=== PATIENT | female | born 1990 ===

== ENCOUNTER 2017-11-28 18:01 | Emergency (ER) | payer BC ==
[2017-11-28 18:13] VITALS: BMI 22.1
[2017-11-28 21:16] LABS: BASO # 0.04 K/mm3 (0.0-2.0); BASO % 0.3 % (0.0-3.0); EOS # 0.4 (0.0-0.7); EOS % 3.7 % (1.5-5.0); GRAN # 6.9 (1.4-6.5); GRAN % 58.2 % (50.0-68.0); HEMOGLOBIN 12.7 g/dL (12.0-16.0); LYMPH # 3.7 (1.2-3.4); LYMPH % 31.4 % (22.0-35.0); MEAN CELL VOLUME 95.1 fl (80.0-105.0); MEAN CORPUSCULAR HEMOGLOBIN 30.9 pg (25.0-35.0); MEAN CORPUSCULAR HGB CONC 32.5 g/dl (31.0-37.0); MEAN PLATELET VOLUME 9.3 fl (7.0-11.0); MONO # 0.8 (0.1-0.6); MONO % 6.4 % (1.0-6.0); RBC 4.11 10^6/uL (3.5-6.1); RED CELL DISTRIBUTION WIDTH 13.2 % (11.5-14.5); WHITE BLOOD COUNT 11.9 10^3/ul (4.5-11.0)
--- NOTE | 2017-11-28 21:30 | ED PDOC ---
Arrival/HPI - General Chief Complaint: Psychiatric Evaluation Time Seen by Provider: 11/28/17 21:06 Historian: Patient - History of Present Illness Narrative History of Present Illness (Text): 11/28/17 21:10 27 year old female, whose past medical history includes bipolar disorder, presents to the emergency department requesting psych admission. Patient reports manic episode 5 days ands wants evaluated. Patient states wants to be admitted to [facility], but needs to be cleared by mobile crisis in order to be admitted. Patient denies suicidal Ideation, homicidal Ideation, visual hallucinations, auditory hallucination, or any other complaints. Time/Duration: Other (5 days ) Symptom Onset: Gradual Symptom Course: Unchanged Activities at Onset: Light Context: Home Past Medical History - Provider Review Nursing Documentation Reviewed: Yes - Infectious Disease Hx of Infectious Diseases: None - Psychiatric Hx Bipolar Disorder: Yes Hx Substance Use: Yes Family/Social History - Physician Review Nursing Documentation Reviewed: Yes Family/Social History: No Known Family HX Smoking Status: Smoker Currrent Status Unknown Hx Alcohol Use: No Hx Substance Use: Yes Substance used: weeds Allergies/Home Meds Allergies/Adverse Reactions: Allergies No Known Allergies Allergy (Verified 11/28/17 21:03) Home Medications: Home Meds Medication Instructions Recorded Confirmed [place] Carbonate ER Tab [[place] 450 mg PO BID 11/28/17 11/28/17 Carbonate] Ziprasidone HCl [Geodon] 20 mg PO BID 11/28/17 11/28/17 Review of Systems - Physician Review All systems were reviewed & negative as marked: Yes - Review of Systems Neurological: absent: Headache, Dizziness Psychiatric: absent: Suicidal Ideation (homicidal ideation ), Other (visual hallucinations/auditory hallucination,) Physical Exam Vital Signs Reviewed: Yes Temperature: Afebrile Blood Pressure: Normal Pulse: Regular Respiratory Rate: Normal Appearance: Positive for: Well-Appearing, Non-Toxic, Comfortable Pain Distress: None Mental Status: Positive for: Alert and Oriented X 3 - Systems Exam Head: Present: Atraumatic, Normocephalic Pupils: Present: PERRL Extroacular Muscles: Present: EOMI Conjunctiva: Present: Normal Mouth: Present: Moist Mucous Membranes Neck: Present: Normal Range of Motion Respiratory/Chest: Present: Clear to Auscultation, Good Air Exchange. No: Respiratory Distress, Accessory Muscle Use Cardiovascular: Present: Regular Rate and Rhythm, Normal S1, S2. No: Murmurs Abdomen: Present: Normal Bowel Sounds. No: Tenderness, Distention, Peritoneal Signs Back: Present: Normal Inspection Upper Extremity: Present: Normal Inspection. No: Cyanosis, Edema Lower Extremity: Present: Normal Inspection. No: Edema Neurological: Present: GCS=15, CN II-XII Intact, Speech Normal Skin: Present: Warm, Dry, Normal Color. No: Rashes Psychiatric: Present: Alert, Oriented x 3, Normal Insight, Normal Concentration. No: Normal Affect (Flat Affect) Medical Decision Making ED Course and Treatment: 11/28/17 21:10 Impression: 27 year old female presents for psych admission. Pt hx of bipolar disorder. Plan: -- EKG -- Labs -- Chest X-ray -- HCG, Qualit, Urinalysis -- Reassess and disposition Progress Notes: 11/28/17 21:28 EKG shows NSR at 71 BPM with sinus arrhythmia. No ST/T Changes. 11/28/17 22:30 Labs WNL. 11/28/17 22:42 Cxray negative. PATIENT MEDICALLY CLEARED FOR PSYCHIATRIC ADMISSION - Lab Interpretations Lab Results: 11/28/17 21:00 11/28/17 21:00 Lab Results 11/28/17 21:40: Urine Color Yellow, Urine Appearance Clear, Urine pH 6.0, Ur Specific [place] 1.010, Urine Protein Negative, Urine Glucose (UA) Negative, Urine Ketones Negative, Urine Blood Negative, Urine Nitrate Negative, Urine Bilirubin Negative, Urine Urobilinogen 0.2, Ur Leukocyte Esterase Negative, Urine HCG, Qual Negative 11/28/17 21:00: Alcohol, Quantitative < 10 11/28/17 21:00: Salicylates < 1 L, Acetaminophen < 10.0 L, [place] 0.5 11/28/17 21:00: Sodium 138, Potassium 4.3, Chloride 102, Carbon Dioxide 26, Anion Gap 14, BUN 13, Creatinine 0.8, Est GFR ( Amer) > 60, Est GFR (Non- Af Amer) > 60, Random Glucose 85, Calcium 9.8, Total Bilirubin 0.2, AST 20, ALT 28, Alkaline Phosphatase 40, Total Protein 7.3, Albumin 4.5, Globulin 2.8, Albumin/Globulin Ratio 1.6 11/28/17 21:00: WBC 11.9 H, RBC 4.11, Hgb 12.7, Hct 39.1, MCV 95.1, MCH 30.9, MCHC 32.5, RDW 13.2, Plt Count 332, MPV 9.3, Gran % 58.2, Lymph % (Auto) 31.4, [place] % (Auto) 6.4 H, Eos % (Auto) 3.7, Baso % (Auto) 0.3, Gran # 6.90 H, Lymph # (Auto) 3.7 H, [place] # (Auto) 0.8 H, Eos # (Auto) 0.4, Baso # (Auto) 0.04 I have reviewed the lab results: Yes - RAD Interpretation Radiology Orders: 11/28/17 21:04 CHEST PORTABLE [RAD] Stat - EKG Interpretation Interpreted by ED Physician: Yes - Transfer of Care Patient signed out to Dr:: Leny Awaiting call back from Dr:: pending psych recommendations and reeval - Scribe Statement The provider has reviewed the documentation as recorded by the Carlos Aviles Provider Scribe Attestation: All medical record entries made by the Seamusibtodd were at my direction and personally dictated by me. I have reviewed the chart and agree that the record accurately reflects my personal performance of the history, physical exam, medical decision making, and the department course for this patient. I have also personally directed, reviewed, and agree with the discharge instructions and disposition. Disposition/Present on Arrival - Present on Arrival Any Indicators Present on Arrival: No History of DVT/PE: No History of Uncontrolled Diabetes: No Urinary Catheter: No History of Decub. Ulcer: No History Surgical Site Infection Following: None - Disposition Have Diagnosis and Disposition been Completed?: Yes Diagnosis: Bipolar 1 disorder Disposition: HOSPITALIZED Disposition Time: 22:46 Condition: FAIR Referrals: [employer] Darrion Hinton, [Primary Care Provider] - Follow up with primary Forms: [employer] (Czech)
[2017-11-28 21:31] LABS: ALB/GLOB RATIO 1.6 (1.1-1.8); ALBUMIN 4.5 g/dL (3.0-4.8); ALT/SGPT 28 U/L (7-56); AST/SGOT 20 U/L (14-36); BLOOD UREA NITROGEN 13 mg/dL (7-21); CALCIUM 9.8 mg/dL (8.4-10.5); GFR AFRICAN-AMERICAN > 60; GFR NON-AFRICAN AMERICAN > 60
[2017-11-28 21:32] LABS: ACETAMINOPHEN < 10.0 ug/ml (10.0-20.0); SALICYLATE < 1 mg/dL (2.0-20.0)
[2017-11-28 21:58] LABS: URINE BILIRUBIN NEGATIVE (NEGATIVE); URINE BLOOD NEGATIVE (NEGATIVE); URINE GLUCOSE (UA) NEGATIVE (NEGATIVE); URINE LEUKOCYTE ESTERASE NEGATIVE Leu/uL (NEGATIVE); URINE NITRATE NEGATIVE (NEGATIVE); URINE PROTEIN NEGATIVE mg/dL (<30 mg/dL); URINE UROBILINOGEN 0.2 E.U./dL (<1 E.U./dL)
[2017-11-28 21:59] LABS: URINE APPEARANCE CLEAR (CLEAR); URINE COLOR YELLOW (YELLOW)
[2017-11-28 22:00] LABS: HCG,QUALITATIVE URINE NEGATIVE (NEGATIVE)
[2017-11-28 22:47] VITALS: O2SAT 100
[2017-11-28 22:53] LABS: BARBITURATES, UR NEGATIVE (NEGATIVE); BENZODIAZEPINES, UR NEGATIVE (NEGATIVE); OPIATES, UR NEGATIVE (NEGATIVE); PHENCYCLIDINE, UR NEGATIVE (NEGATIVE)
--- NOTE | 2017-11-29 02:38 | ED PDOC ---
Physical Exam Vital Signs Temp Pulse Resp BP Pulse Ox 11/29/17 03:56 85 18 108/52 L 100 11/28/17 22:30 98.3 F 80 18 114/71 100 Medical Decision Making ED Course and Treatment: 11/28/17 23:15 Case endorsed to me by Dr. Mondragon. Pending PES evaluation. Patient has a history of bipolar disorder and requesting psych admission. Patient requests transfer to [facility] clinic. 11/29/17 02:05 Patient udder evaluation by PES worker Alda who is arranging for possible transfer to [facility] clinic. Final disposition still pending. - Lab Interpretations Lab Results: 11/28/17 21:00 11/28/17 21:00 Lab Results 11/28/17 21:40: Urine Opiates Screen Negative, Urine Methadone Screen Negative, Ur Barbiturates Screen Negative, Ur Phencyclidine Scrn Negative, Ur Amphetamines Screen Negative, U Benzodiazepines Scrn Negative, U Oth Cocaine Metabols Negative, U Cannabinoids Screen Negative 11/28/17 21:40: Urine Color Yellow, Urine Appearance Clear, Urine pH 6.0, Ur Specific [place] 1.010, Urine Protein Negative, Urine Glucose (UA) Negative, Urine Ketones Negative, Urine Blood Negative, Urine Nitrate Negative, Urine Bilirubin Negative, Urine Urobilinogen 0.2, Ur Leukocyte Esterase Negative, Urine HCG, Qual Negative 11/28/17 21:00: Alcohol, Quantitative < 10 11/28/17 21:00: Salicylates < 1 L, Acetaminophen < 10.0 L, [place] 0.5 11/28/17 21:00: Sodium 138, Potassium 4.3, Chloride 102, Carbon Dioxide 26, Anion Gap 14, BUN 13, Creatinine 0.8, Est GFR ( Amer) > 60, Est GFR (Non- Af Amer) > 60, Random Glucose 85, Calcium 9.8, Total Bilirubin 0.2, AST 20, ALT 28, Alkaline Phosphatase 40, Total Protein 7.3, Albumin 4.5, Globulin 2.8, Albumin/Globulin Ratio 1.6 11/28/17 21:00: WBC 11.9 H, RBC 4.11, Hgb 12.7, Hct 39.1, MCV 95.1, MCH 30.9, MCHC 32.5, RDW 13.2, Plt Count 332, MPV 9.3, Gran % 58.2, Lymph % (Auto) 31.4, [place] % (Auto) 6.4 H, Eos % (Auto) 3.7, Baso % (Auto) 0.3, Gran # 6.90 H, Lymph # (Auto) 3.7 H, [place] # (Auto) 0.8 H, Eos # (Auto) 0.4, Baso # (Auto) 0.04 - RAD Interpretation Radiology Orders: 11/28/17 21:04 CHEST PORTABLE [RAD] Stat - Transfer of Care Patient signed out to Dr:: Tomas Other: Awaiting psychiatric transfer - Scribe Statement The provider has reviewed the documentation as recorded by the Scribe Butch Aviles Provider Scribe Attestation: All medical record entries made by the Scribe were at my direction and personally dictated by me. I have reviewed the chart and agree that the record accurately reflects my personal performance of the history, physical exam, medical decision making, and the department course for this patient. I have also personally directed, reviewed, and agree with the discharge instructions and disposition. Disposition/Present on Arrival - Present on Arrival Any Indicators Present on Arrival: No History of DVT/PE: No History of Uncontrolled Diabetes: No Urinary Catheter: No History of Decub. Ulcer: No History Surgical Site Infection Following: None - Disposition Have Diagnosis and Disposition been Completed?: No Diagnosis: Bipolar 1 disorder Disposition Time: 07:00 Patient Problems: Current Active Problems Problem Status Onset Bipolar 1 disorder Acute Condition: FAIR Referrals: Jaci Hinton, [Primary Care Provider] - Follow up with primary Forms: [employer] (Algerian)
--- NOTE | 2017-11-29 07:19 | ED PDOC ---
Physical Exam Vital Signs Reviewed: Yes Vital Signs Temp Pulse Resp BP Pulse Ox 11/29/17 03:56 85 18 108/52 L 100 11/28/17 22:30 98.3 F 80 18 114/71 100 Temperature: Afebrile Blood Pressure: Normal Pulse: Regular Respiratory Rate: Normal Appearance: Positive for: Well-Appearing, Non-Toxic, Comfortable Pain Distress: None Mental Status: Positive for: Alert and Oriented X 3 Medical Decision Making ED Course and Treatment: 11/29/17 07:18 Case signed out to me by Dr. Smith. Patient requesting psych admission, pending transfer to [facility] final disposition. - Lab Interpretations Lab Results: 11/28/17 21:00 11/28/17 21:00 Lab Results 11/28/17 21:40: Urine Opiates Screen Negative, Urine Methadone Screen Negative, Ur Barbiturates Screen Negative, Ur Phencyclidine Scrn Negative, Ur Amphetamines Screen Negative, U Benzodiazepines Scrn Negative, U Oth Cocaine Metabols Negative, U Cannabinoids Screen Negative 11/28/17 21:40: Urine Color Yellow, Urine Appearance Clear, Urine pH 6.0, Ur Specific [place] 1.010, Urine Protein Negative, Urine Glucose (UA) Negative, Urine Ketones Negative, Urine Blood Negative, Urine Nitrate Negative, Urine Bilirubin Negative, Urine Urobilinogen 0.2, Ur Leukocyte Esterase Negative, Urine HCG, Qual Negative 11/28/17 21:00: Alcohol, Quantitative < 10 11/28/17 21:00: Salicylates < 1 L, Acetaminophen < 10.0 L, [place] 0.5 11/28/17 21:00: Sodium 138, Potassium 4.3, Chloride 102, Carbon Dioxide 26, Anion Gap 14, BUN 13, Creatinine 0.8, Est GFR ( Amer) > 60, Est GFR (Non- Af Amer) > 60, Random Glucose 85, Calcium 9.8, Total Bilirubin 0.2, AST 20, ALT 28, Alkaline Phosphatase 40, Total Protein 7.3, Albumin 4.5, Globulin 2.8, Albumin/Globulin Ratio 1.6 11/28/17 21:00: WBC 11.9 H, RBC 4.11, Hgb 12.7, Hct 39.1, MCV 95.1, MCH 30.9, MCHC 32.5, RDW 13.2, Plt Count 332, MPV 9.3, Gran % 58.2, Lymph % (Auto) 31.4, [place] % (Auto) 6.4 H, Eos % (Auto) 3.7, Baso % (Auto) 0.3, Gran # 6.90 H, Lymph # (Auto) 3.7 H, [place] # (Auto) 0.8 H, Eos # (Auto) 0.4, Baso # (Auto) 0.04 I have reviewed the lab results: Yes - RAD Interpretation Radiology Orders: 11/28/17 21:04 CHEST PORTABLE [RAD] Stat - Scribe Statement The provider has reviewed the documentation as recorded by the Seamusibtodd Angel Provider Scribe Attestation: All medical record entries made by the Scribe were at my direction and personally dictated by me. I have reviewed the chart and agree that the record accurately reflects my personal performance of the history, physical exam, medical decision making, and the department course for this patient. I have also personally directed, reviewed, and agree with the discharge instructions and disposition. Disposition/Present on Arrival - Present on Arrival Any Indicators Present on Arrival: No History of DVT/PE: No History of Uncontrolled Diabetes: No Urinary Catheter: No History of Decub. Ulcer: No History Surgical Site Infection Following: None - Disposition Have Diagnosis and Disposition been Completed?: Yes Diagnosis: Bipolar 1 disorder Disposition: TRANSITIONAL CARE UNIT Disposition Time: 12:00 Patient Plan: Discharge Condition: FAIR Referrals: [employer], [Non-Staff] - Follow up with primary Forms: [employer] (Belgian)
--- NOTE | 2017-11-29 08:45 | RAD ---
HISTORY: medical clearance COMPARISON: No prior. FINDINGS: LUNGS: No active pulmonary disease. PLEURA: No significant pleural effusion identified, no pneumothorax apparent. CARDIOVASCULAR: Normal. OSSEOUS STRUCTURES: No significant abnormalities. VISUALIZED UPPER ABDOMEN: Normal. OTHER FINDINGS: None. IMPRESSION: No active disease.
[2017-11-29 09:53] VITALS: BP 103/53; PULSE 97; RESP 18; TEMP 98.9
--- NOTE | 2017-11-29 10:21 | CARD ---
APPROVED REPORT EKG Measurement Heart [id number] <Conclusion> Normal sinus rhythm with sinus arrhythmia Normal ECG
== END 2017-11-29 10:00 ==
LOC: ED 18:01
DX: F31.9 Bipolar disorder, unspecified (principal)
CPT/HCPCS: 71045; 80053; 80178; 81003; 84703; 85025; 90791; 93005; 99285; G0480